=== PATIENT | male | born 1980 | race American Indian/Alaskan Native ===

== ENCOUNTER 2018-10-29 17:02 | Emergency (ER) | payer OTHER ==
[2018-10-29] MEDS ORDERED: TYLENOL PO ONE (17:23)
--- NOTE | 2018-10-29 17:25 | Emergency Department Report ---
Blank Doc - Documentation Documentation: sudden onset of diarrhea fever and chills diffuse myalgia and occasional sob.
[2018-10-29 17:50] LABS: Basophils % (Auto) 0.2 % (0.0-1.8); Eosinophils % (Auto) 0.1 % (0.0-4.3); Hematocrit 43.2 % (35.5-45.6); Hemoglobin 14.8 gm/dl (11.8-15.2); Lymphocytes # (Auto) 1.3 K/mm3 (1.2-5.4); Lymphocytes % (Auto) 17.5 % (13.4-35.0); Mean Corpuscular HGB Conc 34 % (32-34); Mean Corpuscular Volume 103 fl (84-94); Monocytes # (Auto) 0.4 K/mm3 (0.0-0.8); Monocytes % (Auto) 4.9 % (0.0-7.3); Platelet Count 196 K/mm3 (140-440); Red Blood Count 4.22 M/mm3 (3.65-5.03); Red Cell Distribution Width 14.1 % (13.2-15.2)
[2018-10-29 18:34] LABS: Alanine Aminotransferase 19 units/L (7-56); Albumin 4.4 g/dL (3.9-5); BUN/Creatinine Ratio 10; Blood Urea Nitrogen 10 mg/dL (9-20); Calcium 8.9 mg/dL (8.4-10.2); Hemolysis Index 3
--- NOTE | 2018-10-29 19:12 | XRay Report ---
PROCEDURE: XR CHEST ROUTINE 2V TECHNIQUE: PA and lateral chest HISTORY: sob COMPARISONS: No priors FINDINGS: Cardiomediastinal silhouette within normal limits. No evidence of airspace consolidation or pleural effusions. The pulmonary vasculature is within normal limits. IMPRESSION: No radiographic evidence of acute disease.. This document is electronically signed by Justo Galarza MD., October 29 2018 07:09:36 PM ET
[2018-10-29] MEDS ORDERED: NACL 0.9% 1000 ML 1,000 ML IV ONE ×2 (19:28→21:45)
--- NOTE | 2018-10-29 19:31 | Emergency Department Report ---
ED N/V/D HPI - General Chief complaint: Fever Stated complaint: DIZZY/FEVER/WEAK Time Seen by Provider: 10/29/18 17:24 Source: patient Mode of arrival: Ambulatory Limitations: No Limitations - History of Present Illness Initial comments: 37-year-old -[place] male with a past medical history of HIV comes in for onset of diarrhea fever chills at 02 100 today. Patient is not taking any meds at home. Patient is followed about Aids Victorina is on Triumeq. Patient denies any history of hypertension even though patient's blood pressure was 180/109. Pavan and admits to some shortness of breathing. He does admit to getting the flu vaccine. MD complaint: diarrhea -: This morning Time: 02:00 Description of Diarrhea: water Associated Abdominal Pain: Yes (diffuse) Location: diffuse Radiation: none Severity: severe Pain Scale: 10 Quality: cramping Consistency: intermittent Improves with: none Worsens with: bowel movement Associated Symptoms: fever/chills, nausea/vomiting (no vomiting), shortness of breath, weakness - Related Data Previous Rx's Medication Instructions Recorded Last Taken Type Amoxicillin [Amoxicillin TAB] 875 mg PO BID #20 tablet 09/13/13 Unknown Rx Fluticasone Propionate [Flonase] 2 spray NS QDAY #1 spray.susp 09/13/13 Unknown Rx Ciprofloxacin HCl [Cipro] 500 mg PO Q12H #20 tab 10/29/[address] [[place] Dr] 75 mg PO Q12H #20 tablet 10/29/13 Unknown Rx HYDROcodone/APAP 10-325 [[place] 1 each PO Q6HR PRN #20 tablet 10/29/13 Unknown Rx 10-325 mg TAB] Hydrocortisone 2.5% [Hytone 2.5% 1 applicatio TP TID #15 gm 11/26/14 Unknown Rx CREAM] Terbinafine (Nf) [LamiSIL] 250 mg PO QDAY #14 tablet 11/26/14 Unknown Rx metroNIDAZOLE [Flagyl] 500 mg PO ONCE #4 tablet 03/15/16 Unknown Rx Allergies Allergy/AdvReac Type Severity Reaction Status Date / Time No Known Allergies Allergy Verified 10/29/18 17:05 ED Review of Systems ROS: Stated complaint: DIZZY/FEVER/WEAK Other details as noted in HPI Constitutional: chills, fever Eyes: denies: eye pain, eye discharge, vision change ENT: denies: ear pain, throat pain Respiratory: shortness of breath. denies: cough, wheezing Cardiovascular: denies: chest pain, palpitations Endocrine: no symptoms reported Gastrointestinal: abdominal pain, nausea, diarrhea. denies: vomiting, constipat ion, hematemesis, hematochezia Genitourinary: denies: urgency, dysuria Musculoskeletal: denies: back pain, joint swelling, arthralgia Skin: denies: rash, lesions Psychiatric: denies: anxiety, depression Hematological/Lymphatic: denies: easy bleeding, easy bruising ED Past Medical Hx - Past Medical History Hx HIV: Yes Additional medical history: heart murmur - Surgical History Additional Surgical History: "head surgery" - Social History Smoking Status: Never Smoker Substance Use Type: None - Medications Home Medications: Home Medications Medication Instructions Recorded Confirmed Last Taken Type Amoxicillin [Amoxicillin TAB] 875 mg PO BID #20 tablet 09/13/13 Unknown Rx Fluticasone Propionate [Flonase] 2 spray NS QDAY #1 spray.susp 09/13/13 Unknown Rx Ciprofloxacin HCl [Cipro] 500 mg PO Q12H #20 tab 10/29/[address] [Voltaren Dr] 75 mg PO Q12H #20 tablet 10/29/13 Unknown Rx HYDROcodone/APAP 10-325 [[place] 1 each PO Q6HR PRN #20 tablet 10/29/13 Unknown Rx 10-325 mg TAB] Hydrocortisone 2.5% [Hytone 2.5% 1 applicatio TP TID #15 gm 11/26/14 Unknown Rx CREAM] Terbinafine (Nf) [LamiSIL] 250 mg PO QDAY #14 tablet 11/26/14 Unknown Rx metroNIDAZOLE [Flagyl] 500 mg PO ONCE #4 tablet 03/15/16 Unknown Rx ED Physical Exam - General Limitations: No Limitations General appearance: alert, in no apparent distress - Head Head exam: Present: atraumatic, normocephalic - Eye Eye exam: Present: EOMI - ENT ENT exam: Present: mucous membranes moist - Respiratory Respiratory exam: Present: normal lung sounds bilaterally. Absent: respiratory distress ED Course Vital Signs 10/29/18 10/29/18 10/29/18 17:04 17:27 19:49 Temperature 102.8 F H Pulse Rate 96 H Respiratory 18 20 18 Rate Blood Pressure 180/109 [Right] O2 Sat by Pulse 97 Oximetry 10/29/18 10/29/18 10/30/18 20:52 21:44 00:17 Temperature 101.3 F H 101.5 F H 98.4 F Pulse Rate 89 Respiratory 16 Rate Blood Pressure 102/49 [Right] O2 Sat by Pulse 99 Oximetry ED Medical Decision Making - Lab Data Result diagrams: 10/29/18 17:38 10/29/18 17:38 - Medical Decision Making Patient has been evaluated by this provider in fast track. Patient comes in with fever and diarrhea. CBC CMP CT of abdomen urinalysis rapid strep has come back within normal limits. Patient has had Tylenol and ibuprofen. Patient's fever has finally broke patient's vital signs have improved patient feels like he can be discharged home. I discussed the patient at like to give him a day off of work for him to allow him to rest and drink plenty of fluids. Discussed the patient to follow up with his internal medicine or HIV provider if his symptoms persist or gets worse. Patient verbalized understanding. Critical care attestation.: If time is entered above; I have spent that time in minutes in the direct care of this critically ill patient, excluding procedure time. 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 Please increase your fluid intake and thinks her diet as tolerated. Tried eating a brat diet consistent of bananas rice applesauce and toast. If her symptoms persist or gets worse please follow up with her primary care provider. Forms: Work/School Release Form(ED), Accompanied Note
[2018-10-29] MEDS ORDERED: IBUPROFEN PO ONE (20:57)
[2018-10-29] MEDS ORDERED: IBUPROFEN ONE (20:58)
[2018-10-29 21:42] LABS: Bilirubin,Urine NEG (Negative); Blood,Urine NEG (Negative); Color,Urine Yellow (Yellow); Hyaline Casts,Urine 1 /LPF; Mucus,Urine 2+ /HPF; Urobilinogen,Urine < 2.0 mg/dL (<2.0)
--- NOTE | 2018-10-29 23:29 | Cat Scan Report ---
PROCEDURE: CT ABDOMEN PELVIS W CON TECHNIQUE: Computerized axial tomography of the abdomen and pelvis was performed after the IV inject ion of iodinated nonionic contrast. CT DOSE LENGTH PRODUCT: mGycm HISTORY: fever back pain immunocompromise COMPARISONS: None . FINDINGS: Visualized lower thorax: No significant abnormality. Liver: Normal size and attenuation. Spleen: Normal size and attenuation. There are calcified granulomas in the spleen. Gallbladder and biliary system: Normal. Pancreas: Normal. Adrenals: Normal. Kidneys: Normal. GI tract: There is diffuse mucosal thickening of the colon consistent with colitis. This is nonspeci fic and could be infectious or inflammatory. There is no diverticulitis or ischemic bowel injury. The re is no bowel obstruction. The stomach, small bowel and appendix are normal. . Lymph nodes and mesentery: There is mesenteric adenopathy. Vasculature: Normal.. Bladder: Normal. Reproductive organs: Normal. Peritoneum: There is no ascites or free air. There is no peritoneal abscess.. Musculoskeletal structures: No significant abnormality. IMPRESSION: There are calcified granulomas in the spleen. There is diffuse mucosal thickening of the colon consistent with colitis. This is nonspecific and cou ld be infectious or inflammatory. There is no diverticulitis or ischemic bowel injury. There is no bowel obstruction. The stomach, small bowel and appendix are normal. . There is mesenteric adenopathy. There is no ascites or free air. There is no peritoneal abscess.. . This document is electronically signed by Garry Bustamante MD., October 29 2018 11:27:35 PM ET
[2018-10-30 00:18] VITALS: BP 102/49
== END 2018-10-30 00:39 | disposition home or self-care (01) ==
LOC: ED 17:02
DX: R50.9 Fever, unspecified (principal); R19.7 Diarrhea, unspecified; B20 Human immunodeficiency virus [HIV] disease
CPT/HCPCS: 36415; 71046; 74177; 80053; 81001; 85025; 87400; 96360; 96361; 99284; J7030